=== PATIENT | female | born 1985 | race Caucasian/White ===

== ENCOUNTER 2022-07-22 00:58 | Day surgery (SDC) | payer OTHER, SELFPAY ==
[2022-07-20 11:24] VITALS: BMI 40.6
--- NOTE | 2022-07-20 11:35 | PC.NURSE ---
Report to the Outpatient Waiting Room, entrance under the green pavilion located off [facility], at time 1230 on date 07/22/22. OR Time: 1430. - You and your visitor will be asked to self-screen and do not enter if you have any COVID symptoms. - Only one visitor and NO children visitors are allowed at this time. - The patient visitor is requested to leave or wait in car when not with patient due to restrictions. - A mask is required within the hospital. Patients may have clear liquids (water, carbonated beverages, clear teas, apple juice) until 3 hours prior to surgery with a maximum of 20 ounces. - No food from midnight until time of surgery Take the following medications with a SIP of water the morning of surgery: N/A Medications to discontinue per physician: N/A Date to take last dose: N/A Please no make-up, nail english, hairspray, perfume, deodorant, or body powder the day of surgery. No jewelry (including any body piercings) or valuables the day of surgery, leave them at home. Please take a shower or bath the night before, or the morning of, surgery with an antibacterial soap. Wear comfortable, loose fitting clothing. - Jewelry must be removed prior to entering the operating room. Rings and piercings that are not removed may be cut off. - The hospital will not accept responsibility for valuables. - Please leave all valuables, including medications, at home the day of surgery. If you are going home after surgery, a licensed driver guide must drive you home. - NO public transportation without another adult. - We recommend that an adult stay with you for 24 hours following discharge. - We also recommend that you do not drive, make important decision, drink alcoholic beverages, or take any drugs that were not prescribed by your health care provider for at least 24 hours after your discharge time. Follow any additional instructions given to you from your surgeon. If you or anyone in your household have experienced Covid symptoms in the past week, please notify your surgeon or the nurse liaison at the phone number below for possible testing. Telephone instructions given to PT - SHADI LEVINE and asked if any additional questions and then verbalized understanding. Patient advised to call surgeon office or pre surgery nurse liaison [phone] if any additional questions.
[2022-07-22] VITALS (10 sets, daily range): BP systolic 109–142; BP diastolic 72–104; PULSE 56–94; RESP 15–21; TEMP 36.1–37.3; O2SAT 95–100
--- NOTE | 2022-07-22 13:15 | WPDANESEPPF ---
Anes - Initial Pre Proc Eval Procedure: Operation Date: 07/22/22 14:30 Proposed Procedures p Laparoscopic Left Ovarian Cystectomy, Bilateral Salpingectomy, Hysteroscopy with Removal of Intrauterine Device - Rk Oquendo MD Date/Time: 07/22/22 13:15 Surgeon: Rk Oquendo MD Pre Op Diagnosis: Lt Ovarian Cyst, Desires Sterilization Patient Data Age: 37 Gender: F Height: 1.55 m Weight: 97.52 kg Allergies Allergy/AdvReac Type Severity Reaction Status Date / Time No Known Allergies Allergy Verified 07/20/22 11:23 Home Medications Medication Instructions Recorded Confirmed Type No Home Medications 07/13/22 07/20/22 History Patient hx anesthesia problems: post op nausea/vomiting Family hx anesthesia problems: none Results Review: All pre-operative results and documents have been reviewed as part of the pre-operative evaluation. [facility] Past Medical History Medical History Abnormal mammogram 01/31/09 asymmetry - US F/U WNL Abnormal Pap smear of cervix 2006 - LGSIL ACL tear Acne BMI 38.0-38.9,adult Encounter for IUD insertion 02/08/19 Mirena insertion Other specified injuries of right lower leg, initial encounter Postoperative follow-up URI, acute Surgical History Surgical History (Updated 07/13/22 @ 14:07 by CHARLEEN Flynn) History of appendectomy (05/23/18) History of 08/17/12 primary--breech 11/04/14 rpt c/s History of colposcopy with cervical biopsy 03/22/17 LGSIL--benign 04/06/07--squamous atypia/HPV changes History of ovarian cystectomy (01/08/16) RA lt ovarian cystectomy History of plastic surgery chicken pox scar revision S/P arthroscopic surgery of right knee (~03/02/22) ACL repair Family History Family History Father No problems noted. Mother No problems noted. Sibling No problems noted. 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 Gender identity (if verbalized by the patient): Female Sexual Orientation (if Verbalized by the Patient): Straight or Heterosexual Spiritual care concerns: No Anes - Eval Final PreProcedure Day of Procedure 07/22/22 13:15 Patient weight: morbidly obese Heart: regular rate and rhythm Lungs: clear to auscultation Airway: Mallampati scale class II Neurological: alert and oriented Last oral intake: >/= 8 hours ASA classification: III Emergent: no Anesthetic plan: proceed Anesthesia type and monitoring: general ETT and standard monitoring Results Review: All pre-operative results and documents have been reviewed as part of the pre-operative evaluation. Informed Consent: The patient's anesthetic plan and its attendant risks and benefits were discussed with the patient/family/POA. Questions were solicited and answers provided to the satisfaction of the patient/family/POA.
--- NOTE | 2022-07-22 13:31 | PM.IMHP ---
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 She has had this pain for last 4-5 weeks increasing in severity. No other associated symptomatology. The ultrasound reveals 4-5 cm simple cyst of the left ovary. Also desires salpingectomy for control, we have discussed the permanence failure rate increased risk of ectopic and regret and she consents desires to proceed. Also has an IUD in place which will need to be removed. Chief Complaint: Pelvic pain Review of Systems Review of Systems: All systems reviewed & are unremarkable except as noted in HPI and below PMFSH Past Medical History Medical History Abnormal mammogram 01/31/09 asymmetry - US F/U WNL Abnormal Pap smear of cervix 2006 - LGSIL ACL tear Acne BMI 38.0-38.9,adult Encounter for IUD insertion 02/08/19 Mirena insertion Other specified injuries of right lower leg, initial encounter Postoperative follow-up URI, acute Surgical History Surgical History History of appendectomy (05/23/18) History of 08/17/12 primary--breech 11/04/14 rpt c/s History of colposcopy with cervical biopsy 03/22/17 LGSIL--benign 04/06/07--squamous atypia/HPV changes History of ovarian cystectomy (01/08/16) RA lt ovarian cystectomy History of plastic surgery chicken pox scar revision S/P arthroscopic surgery of right knee (~03/02/22) ACL repair Family History Family History Father No problems noted. Mother No problems noted. Sibling No problems noted. 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 Gender identity (if verbalized by the patient): Female Sexual Orientation (if Verbalized by the Patient): Straight or Heterosexual Spiritual care concerns: No Meds Home Medications and Allergies Home Medications Medication Instructions Recorded Confirmed Type No Home Medications 07/13/22 07/20/22 History Allergies Allergy/AdvReac Type Severity Reaction Status Date / Time No Known Allergies Allergy Verified 07/20/22 11:23 Exam Const: General: cooperative, healthy appearing and comfortable Resp: Effort & Inspection: normal respiratory effort Auscultation: clear to auscultation bilaterally Cardio: Rate: regular rate Rhythm: regular rhythm GI: Inspection: normal to inspection Auscultation: normal bowel sounds : External Female Exam: normal external appearance Speculum Exam - Vagina: normal appearance of the vagina Speculum Exam - Cervix: normal appearance of the cervix (Short IUD string noted) Bimanual exam- vagina & uterus: uterine size normal Bimanual Exam- Adnexa, other: other (Left adnexa enlarged and tender) Assessment and Plan Assessment and plan (1) Ovarian cyst: Code(s): N83.209 - Unspecified ovarian cyst, unspecified side Status: Acute Assessment and Plan: Proceed with laparoscopic ovarian cystectomy, possible oophorectomy the on likely that this will need to be performed. (2) Encounter for female sterilization procedure: Code(s): Z30.2 - Encounter for sterilization Status: Acute Assessment and P
--- NOTE | 2022-07-22 13:39 | WPDHPUPDATE1 ---
History and Physical Update Update Date/Time: 07/22/22 13:39 History and Physical has been reviewed, including an updated exam of the patient. There are NO changes in the patient's condition. Risks, benefits, and alternatives have been discussed and questions answered. Patient agrees to proceed with procedure.
[2022-07-22] MEDS: ACETAMINOPHEN 500 MG TABLET 1000 MG PO (13:42)
[2022-07-22] MEDS: KETOROLAC 15 MG/ML VIAL (*BKC) IV PUSH (13:43)
[2022-07-22] MEDS: SCOPOLAMINE 1.5 MG PATCH TRANSDERM (13:43)
[2022-07-22] MEDS: MIDAZOLAM HCL (*CRX) 2 MG/2 ML VIAL IV PUSH (14:08)
[2022-07-22] MEDS: LACTATED RINGERS 1,000 ML 30 ML IV CONT (14:15)
--- NOTE | 2022-07-22 15:47 | W.PM.PROC2 ---
Procedure Note - Detailed Date of Procedure 07/22/22 Pre-op Diagnosis Lt Ovarian Cyst, Desires Sterilization, retained IUD Post-op Diagnosis Same Procedure Performed 1. Laparoscopic bilateral salpingectomy 2. Laparoscopic left ovarian cystectomy 3. Removal of IUD (hysteroscope not require) Surgeon Rk Oquendo MD Anesthesia General Findings 1. Retained IUD 2. Left ovarian cyst Description of Procedure Patient prepped draped usual manner for this procedure. Cervical instruments were placed for uterine mobility and the IUD was readily removed at this point in time during the case. Midline and lateral trocars were placed under direct visualization and insufflation was undertaken without difficulty. Using Harmonic scalpel the mesial salpinx was cauterized and cut bilateral to remove both fallopian tubes. The ovarian cyst was located the ovary was incised over the cyst and the cyst wall was removed without difficulty. Chantel was empirically placed in the ovarian biopsy site but there was no significant bleeding. Gas was allowed to escape incisions approximated using 4-0 Monocryl the patient's recovery room in stable condition. Estimated Blood Loss 20 Drains No Packing No Pathology Yes Complications No immediate complications Condition Stable Disposition PACU [facility] Billing Surgery - Charge Forward: Surgery Billing
[2022-07-22] MEDS: ONDANSETRON INJ 4 MG/2 ML VIAL IV PUSH (16:10)
[2022-07-22] MEDS: diphenhydrAMINE HCl INJ 50 MG/ML VIAL 25 MG IV PUSH (16:17)
[2022-07-22] MEDS: MEPERIDINE HCL INJ (*CRX) 50 MG/ML AMPUL 25 MG IV PUSH (16:28)
[2022-07-22] MEDS: oxyCODONE HCL (*CRX) 5 MG TAB IR PO (17:47)
== END 2022-07-22 18:09 | disposition home or self-care (01) ==
PROVIDERS: Visit Provider Obstetrics & Gynecology
PROC: 0UDB8ZZ Extraction of Endometrium, Via Natural or Artificial Opening Endoscopic (ICD-10-PCS; CPT 58558; principal; 2022-07-22 14:30)
DX: Z30.2 Encounter for sterilization (principal); Z30.432 Encounter for removal of intrauterine contraceptive device; Z87.891 Personal history of nicotine dependence; E66.9 Obesity, unspecified; Z68.39 Body mass index [BMI] 39.0-39.9, adult; N83.292 Other ovarian cyst, left side
CPT/HCPCS: 58661; 58301; 58662; 88302; 88305; A9270; J1100; J1200; J1885; J2175; J2250; J2405; J2704; J2710; J3010; J7030; J7120

== ENCOUNTER → 2022-07-28 10:13 | Outpatient (CLI) | payer OTHER, SELFPAY ==
--- NOTE | ~2022-07-28 | US_ITS ---
EXAMINATION: US soft tissue LE LT DATE: 07/28/2022 10:32 INDICATION: Bulging left leg mass [id number] TECHNIQUE: Multiple grayscale and Doppler ultrasound images of the region of concern at the posterior left upper calf were obtained. COMPARISON: None FINDINGS: The appearance to the subcutaneous tissues and underlying musculature at the region of concern. No li ba, 's cyst or other abnormal masses or fluid collections identified. IMPRESSION: 1. Normal study. No abnormal masses or fluid collections identified at the region of concern. Reviewed, dictated and finalized at location A. IMPRESSION: 1. Normal study. No abnormal masses or fluid collections identified at the brandon on of concern.
== END ==
PROVIDERS: PCP Family Medicine
DX: M79.89 Other specified soft tissue disorders (principal)
CPT/HCPCS: 76882

== ENCOUNTER 2022-07-28 10:37 | Outpatient (CLI) | payer OTHER, SELFPAY ==
[2022-07-28 18:47] LABS: Basophils Absolute Auto 0.1 K/mm3 (0.0-0.1); Basophils Percent Auto 0.5 % (0.2-1.2); Eosinophils Absolute Auto 0.1 K/mm3 (0-0.3); Eosinophils Percent Auto 0.8 % (0-4.4); Hematocrit 43.8 % (37.0-47.0); Hemoglobin 14.8 g/dL (12.0-15.0); Immature Granulocyte Absolute 0.02 K/mm3 (0.00-0.031); Immature Granulocyte Percent A 0.2 % (0-0.5); Lymphocytes Absolute Auto 2.78 K/mm3 (0.9-3.2); Lymphocytes Percent Auto 26.8 % (18.3-44.2); Mean Corpuscular HGB Conc 33.8 g/dl (32-36); Mean Corpuscular Hemoglobin 30.3 pg (26-34); Mean Corpuscular Volume 89.6 fl (80-100); Mean Platelet Volume 11.4 fl (7.4-10.4); Monocytes Absolute Auto 0.7 K/mm3 (0.1-0.6); Monocytes Percent Auto 6.3 % (2.6-8.5); Neutrophils Absolute Auto 6.8 K/mm3 (1.3-6.7); Neutrophils Percent Auto 65.4 % (45.5-73.1); Platelet Count Result 351 k/mm3 (150-375); Red Blood Count 4.89 M/mm3 (4.2-5.4); Red Cell Distribution Width 12.5 % (11.5-14.5); White Blood Count 10.4 K/mm3 (4.5-10.0)
[2022-07-28 18:57] LABS: Alanine Aminotransferase 21 U/L (6-35); Albumin Level 4.7 g/dL (3.5-5.1); Alkaline Phosphatase 93 U/L (38-126); Anion Gap 17 mmol/L (8-16); Aspartate Amino Transferase 47 U/L (14-36); Bilirubin,Total 0.2 mg/dL (0.2-1.3); Blood Urea Nitrogen 9 mg/dL (7-17); Calcium 9.6 mg/dL (8.4-10.2); Carbon Dioxide 26 mmol/L (22-30); Chloride 97 mmol/L (98-107); Estimated Glomerular Filt Rate > 60; Glucose 84 mg/dL (65-110); Potassium 4.4 mmol/L (3.4-5.0); Sodium 140 mmol/L (137-145)
== END 2022-07-28 10:38 | disposition home or self-care (01) ==
LOC: ANHGOSHLAB 10:38
PROVIDERS: PCP Family Medicine; Visit Provider Nurse Practitioner Family
DX: R42 Dizziness and giddiness (principal); G89.18 Other acute postprocedural pain; R11.0 Nausea
CPT/HCPCS: 36415; 76882; 80053; 85025

== ENCOUNTER 2025-02-15 15:08 | Outpatient (CLI) | payer OTHER, SELFPAY ==
--- NOTE | ~2025-02-15 | MM_ITS ---
EXAMINATION: MM screening balbir BI w ernestina HISTORY: Baseline screening TECHNIQUE: Craniocaudal and mediolateral oblique 3-D tomosynthesis images were obtained and synthetic 2-D images were generated. CAD analysis was submitted and interpreted. COMPARISON: No prior mammogram BREAST PARENCHYMAL COMPOSITION: The breasts are heterogeneously dense, which may obscure small masses . FINDINGS: Well-circumscribed asymmetry within the slightly lower inner right breast for which spot co mpression views followed by ultrasound is recommended. Otherwise unremarkable parenchymal pattern without suspicious microcalcifications or architectural di stortion. IMPRESSION: Well-circumscribed asymmetry within the slightly lower inner right breast for which spot compression views followed by ultrasound is recommended. BI-RADS Category 0: Incomplete: Needs additional imaging evaluation. Reviewed, dictated and finalized at location A. IMPRESSION: Well-circumscribed asymmetry within the slightly lower inner right breast for w hich spot compression views followed by ultrasound is recommended. BI-RADS Category 0: Incomplete: Needs additional imaging evaluation.
== END 2025-02-15 15:09 | disposition home or self-care (01) ==
LOC: MICIMG 15:09
PROVIDERS: PCP Family Medicine; Visit Provider Obstetrics & Gynecology
DX: Z12.31 Encounter for screening mammogram for malignant neoplasm of breast (principal); N64.89 Other specified disorders of breast
CPT/HCPCS: 77063; 77067

== ENCOUNTER 2025-02-23 13:06 | Outpatient (CLI) | payer OTHER, SELFPAY ==
--- NOTE | ~2025-02-23 | MMUS_ITS ---
EXAMINATION: US breast RT limited, MM diagnostic balbir RT w ernestina HISTORY: Follow-up right breast mass TECHNIQUE: Additional 3-D tomosynthesis images of the right breast were performed and synthetic 2-D i mages were generated. CAD analysis was submitted and interpreted. High resolution Limited right breas t ultrasound was performed. COMPARISON: 02/16/2020 BREAST PARENCHYMAL COMPOSITION: Dense: The breasts are heterogeneously dense, which may obscure small masses FINDINGS: MAMMOGRAPHIC FINDINGS: There is a persistent low-density mass in the lower inner quadrant of the right breast. There are no suspicious calcifications or architectural distortion. ULTRASOUND: Limited right breast ultrasound: There are multiple cysts of the right breast including a septated cy st at 6:00. At 12:00, 4 cm from the nipple there is a 5 mm cyst. At 1:00, 1 cm from the nipple there is a 3 mm cyst. At 2:00, 3 cm from the nipple there is a 4 mm cyst. No suspicious masses to suggest m alignancy. IMPRESSION: 1. No evidence for malignancy in the right breast. Benign findings. 2. Routine yearly screening mammogram and regular clinical breast examination are recommended. BI-RADS Category 2: Benign finding(s). Reviewed, dictated and finalized at location A. IMPRESSION: 1. No evidence for malignancy in the right breast. Benign findings. 2. Routine yearly screening mammogram and regular clinical breast examination a re recommended. BI-RADS Category 2: Benign finding(s).
--- OUTSIDE RECORDS SUMMARY | 2025-02-23 13:12 | XMS_ITS | Referral Summary ---
Author Organization [facility] Address [address] [place] [id number] Care Team Providers Care Solar Sales Specialist Name Role Phone Fabiano Dean MD Primary Care Provider Encounters Date Type Department Care Team Description 02/05/2025 Results Follow-Up [facility] Emergency Department [address] [place] [address] Celestino Crane RN 02/04/2025 11:58 AM CDT - 02/04/2025 3:32 PM CDT Emergency [facility] Emergency Department [address] [place] [address] Satya Arteaga MD Lacy, Aaron John, MD Fall, initial encounter (Primary Dx); Nausea and vomiting, unspecified vomiting type; Acute alcoholic gastritis, presence of bleeding unspecified Discharge Disposition: Discharge to home or self care from Last 3 Months Allergies No known active allergies Medications levonorgestreL (Mirena) IUDIndications:Pr egnancy Contraception by intrauterine route once Active ondansetron (ZOFRAN) 4 mg tablet Take 1 tablet (4 mg total) by mouth every 6 (six) hours 12 tablet 02/05/20 25 Active Active Problems Problem Noted Date Diagnosed Date Rupture of anterior cruciate ligament of right k nee 02/20/2022 Overview (02/20/2022): Added automatically from request for surgery [id number] Breakthrough bleeding 02/05/2022 Cough 02/05/2022 Female genital symptoms 02/05/2022 Loss of hair 02/05/2022 Posterior rhinorrhea 02/05/2022 Upper respiratory infection 02/05/2022 Urinary incontinence 02/05/2022 Vaginal bleeding between periods 02/05/2022 Acute appendicitis with generalized peritonitis 05/15/2018 Assessment & Plan (05/16/2018 12:20 PM CDT): Doing well. Tolerating regular diet. Discharge home Social History Tobacco Use Types Packs/Day Years Used Date Smoking Tobacco: Some Days Cigarettes 0.1 1 Smokeless Tobacco: Never Tobacco Cessation:Counseling Given: No Comments:1 pack /month Alcohol Use Standard Drinks/Week Comments Yes 2 (1 standard drink = 0.6 oz pur e alcohol) AUDIT-C Answer Date Recorded Q1: How often do you have a drink containing alc ohol? 2-3 times a week 02/20/2022 Q2: How many drinks containi ng alcohol do you have on a typical day when you are drinking? 1 or 2 02/20/2022 Q3: How often do you have si x or more drinks on one occasion? Never 02/20/2022 Personal Safety Answer Date Recorded Have you ever been in or are you currently in a harmful physical or emotional relationship or is someone making you feel afraid or unsafe? 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 Sexual Orientation Straight 01/30/2022 11 :37 PM [employer] FACULTY MEMBER Last Filed Vital Signs Vital Sign Reading Time Taken Comments Blood Pressure 120/78 02/04/2025 1:40 PM CDT Pulse 95 02/04/2025 1:40 PM CDT Temperature 36.8 C (98.2 F) 02/04/2025 1:40 PM CDT Respiratory Rate 15 02/04/2025 1:40 PM CDT Oxygen Saturation 99% 02/04/2025 1:40 PM CDT Inhaled Oxygen Concentration - - Weight 70.3 kg (155 lb) 02/04/2025 12:04 PM CDT Height 152.4 cm (5') 02/04/2025 12:04 PM CDT Body Mass Index 30.27 02/04/2025 12:04 PM CDT Plan of Treatment Not on file Medical Devices Implanted Type Area Laser Technician Device Identifier Shelf Expiration Date Model / Serial / Lot [employer] Ar-1588-Rtt Device Fxatn Tightrope Fibertag Acl Right Disp - [id number] Implanted:Qty: 1 on 02/27/2022 by Darrick Kerns MD at [facility] [place] Right: Knee [employer] 11/21/2026 AR-1588-RTT / / [id number] [employer] Ar-4030c-10 Fastthread 10mm 30mm Knee Screw Interference Biocomposite - [id number] Implanted:Qty: 1 on 02/27/2022 by Darrick Kerns MD at [facility] Right: Knee [employer] 08/21/2025 AR-4030C-10 / / [id number] [employer] Swivelock C 4.75mm 19.1mm Closed Eyelet Vent [place] Suture Ar-2324bcc - [id number] Implanted:Qty: 1 on 02/27/2022 by Darrick Kerns MD at [facility] Right: Knee [employer] 11/21/2025 AR-[id number] / / [id number] Procedures Procedure Name Priority Date/Time Associated Diagnosis Comments HEMOGLOBIN A1C STAT 02/04/2025 2:17 PM CDT BLOOD GAS, VENOUS STAT 02/04/2025 2:1 7 PM CDT TROPONIN I HIGH-SENSITIVITY 2-HOUR Timed 02/04/2025 2:17 PM CDT TROPONIN I HIGH-SENSITIVITY SERIES (BASELINE, 2HR, 4HR, 6HR) STAT 02/04/2025 12:47 PM CDT ECG 12-LEAD Routine 02/04/2025 12:[address] HEAD FACIAL BONES WO CONTRAST ED 02/04/2025 12:45 PM CDT EGFR STAT 02/04/2025 12:30 PM CDT DIFFERENTIAL AUTO STAT 02/04/2025 12: 30 PM CDT COMPREHENSIVE METABOLIC PANEL STAT 02/04/2025 12:30 PM CDT CBC WITH AUTO DIFFERENTIAL STAT 02/04/2025 12:30 PM CDT POCT GLUCOSE DEVICE Routine 02/04/2025 1 2:09 PM CDT from Last 3 Months Results * Troponin I high-sensitivity 2-hour (02/04/2025 2:17 PM CDT) Trop I hs <4 <=17 ng/L Comment: Interpretive Data For further hscTnI resources including the diagnostic algorithm and an aid in interpretation, copy and paste this link: https://bjhlab.testcatalog.org/show/hsTrop-1 Current Interpretive Data last revised 2020. Trop I hs delta See Comment ng/L [facility] ALLISON Comment:Inappropriate collec tion time to report a delta. Trop I hs pct delta See Comment % SHEEBA ALLISON Comment:Inappropriate collec tion time to report a delta. Trop I hs interp See Comment SHEEBA ALLISON Comment:Inappropriate collec tion time to report a delta. Blood 02/04/2025 2:17 PM CDT 02/04/2025 2:31 PM CDT us Satya Arteaga MD LAB BLOOD ORDERABLES Final Re sult SHEEBA ALLISON [facility] Department [place] [address] * Hemoglobin A1c (02/04/2025 2:17 PM CDT) Hgb A1C 5.1 4.0 - 5.6 % Estimated Average Glucose 100 mg/dL [facility] KEITH Comment: The ADA recommends reporting an estimated Average Glucose (eAG) with all Hemoglobin A1c results using the equation derived from a study of 507 normal and diabetic adults. Minority populations were underrepresented and children were not included. (Diabetes Care 2020; 43(S1): S66-S76). The eAG is not equivalent to a fasting glucose. Blood 02/04/2025 2:17 PM CDT 02/04/2025 2:31 PM CDT Satya Arteaga MD LAB BLOOD ORDERABLES Final Re sult Performing Organization Address [facility] de Phone Number [facility] Department [place] [address] * (ABNORMAL) Blood gas, venous (02/04/2025 2:17 PM CDT) pH, Venous 7.33 7.32 - 7.43 PCO2, Venous 37(L) 40 - 50 mmHg [facility] PO2, Venous 109 mmHg [facility] Comment: Interpretive Data No Reference Range Established Current Interpretive Data was last revised on 2018. HCO3 Venous, Calculated 20 20 - 30 mmol/L [facility] BE, venous -6 mmol/L [facility] Comment: Interpretive Data No Reference Range Established Current Interpretive Data was last revised on 2018. Blood 02/04/2025 2:17 PM CDT 02/04/2025 2:22 PM CDT Satya Arteaga MD LAB BLOOD ORDERABLES Final Re sult Performing Organization Address [facility] Co de Phone Number [facility] Department [place] [address] * Troponin I high-sensitivity series (baseline, 2hr, 4hr, 6hr) (02/04/2025 12:47 PM CDT) Trop I hs <4 <=17 ng/L Comment: Interpretive Data For further [facility] resources including the diagnostic algorithm and an aid in interpretation, copy and paste this link: https://bjhlab.testcatalog.org/show/hsTrop-1 Current Interpretive Data last revised 2020. Blood 02/04/2025 12:4 7 PM CDT 02/04/2025 12:50 PM CDT Satya Arteaga MD LAB BLOOD ORDERABLES Final Re sult Performing Organization Address City/[facility]/ZIP Co de Phone Number [facility] Department [place] [address] * ECG 12-LEAD (02/04/2025 12:46 PM CDT) Narrative [facility] - 02/04/2025 12:46 PM CDT Satya Arteaga MD 02/04/2025 12:47 PM ECG 12 lead Date/Time: 02/04/2025 12:46 PM Performed by: Satya Arteaga MD Authorized by: Satya Arteaga MD Rate: ECG rate assessment comment: 117, sinus tachycardia, st depressio shawn II nsstc, normal axis, normal intervals Satya Arteaga MD ECG ORDERABLES Final Result Performing Organization Address [facility] Co de Phone Number [facility] * CT Head Facial Bones WO Contrast (02/04/2025 12:45 PM CDT) Anatomical Region Laterality Modality Head and Neck N/A Computed Tomogra phy 02/04/2025 1:09 PM CDT Impressions 02/04/2025 1:12 PM CDT 1. No acute intracranial process. 2. Small hematoma superficial to the left midline mandible and chin, without underlying fracture. Dictated by: Ghassan Dumont MD, Ph.D The radiology attending physician has personally reviewed this study, and had reviewed and/or edited this written report and agrees with it. Electronically signed by: Gem Richard MD Narrative 02/04/2025 1:12 PM CDT EXAMINATION: 1. CT head without contrast 2. CT of the maxillofacial bones, orbits, and paranasal sinuses without contrast HISTORY: Hit head on nightstand in the middle the night. Vomiting subsequently. TECHNIQUE: CT of the head was performed with images acquired from skull base to vertex without intravenous contrast. Computed tomography of the maxillofacial bones, orbits, and paranasal sinuses was performed without intravenous contrast according to the standard protocol. COMPARISON: None FINDINGS: HEAD: There is no acute intracranial hemorrhage. Ventricles are of normal size and morphology. No mass effect or midline shift is present. The mead-white matter differentiation is normal. Small right mucous retention cyst in the maxillary sinus. No fractures are identified. FACE: Small hematoma superficial to the left midline mandible, with associated stranding of the chin on the left side. No underlying acute fracture. The orbits are normal. The frontal, ethmoid, and sphenoid sinuses are normal. The mandible is normal. No areas of bony erosion are identified. The remaining maxillofacial bones are unremarkable. The mastoid air cells are normal. There is no acute fracture. Procedure Note Gem Richard MD PhD - 02/04/2025 EXAMINATION: 1. CT head without contrast 2. CT of the maxillofacial bones, orbits, and paranasal sinuses without contrast HISTORY: Hit head on nightstand in the middle the night. Vomiting subsequently. TECHNIQUE: CT of the head was performed with images acquired from skull base to vertex without intravenous contrast. Computed tomography of the maxillofacial bones, orbits, and paranasal sinuses was performed without intravenous contrast according to the standard protocol. COMPARISON: None FINDINGS: HEAD: There is no acute intracranial hemorrhage. Ventricles are of normal size and morphology. No mass effect or midline shift is present. The mead-white matter differentiation is normal. Small right mucous retention cyst in the maxillary sinus. No fractures are identified. FACE: Small hematoma superficial to the left midline mandible, with associated stranding of the chin on the left side. No underlying acute fracture. The orbits are normal. The frontal, ethmoid, and sphenoid sinuses are normal. The mandible is normal. No areas of bony erosion are identified. The remaining maxillofacial bones are unremarkable. The mastoid air cells are normal. There is no acute fracture. IMPRESSION: 1. No acute intracranial process. 2. Small hematoma superficial to the left midline mandible and chin, without underlying fracture. Dictated by: Ghassan Dumont MD, Ph.D The radiology attending physician has personally reviewed this study, and had reviewed and/or edited this written report and agrees with it. Electronically signed by: Gem Richard MD Satya Arteaga MD IMG CT PROCEDURES Final Resul t * eGFR (02/04/2025 12:30 PM CDT) eGFR >90 >=60 mL/min/1. 73 m2 Comment: Interpretive Data Reference Interval Normal >/= 90 mL/min/1.73m2 Mildly decreased* 60 - 89 mL/min/1.73m2 Mildly to moderately decreased 45 - 59 mL/min/1.73m2 Moderately to severely decreased 30 - 44 mL/min/1.73m2 Severely decreased 15 - 29 mL/min/1.73m2 Kidney Failure < 15 mL/min/1.73m2 *Relative to young adult level Estimated glomerular filtration rate is determined by the 2020 CKD-EPI equation recommended by the National Kidney Foundation (A Unifying Approach to GFR Estimation: Recommendations of the NKF-ASK Task Force on Reassessing the Inclusion of Race in Diagnosing Kidney Disease, JASN 2020). The CKD-EPI equation should not be used for patients with unstable renal function and has not been validated in children and those over 70. Current interpretive data was last reviewed 2021. Blood 02/04/2025 12:3 0 PM CDT 02/04/2025 12:46 PM CDT Satya Arteaga MD LAB BLOOD ORDERABLES Final Re sult [facility] Department [place] [address] * (ABNORMAL) Differential, auto (02/04/2025 12:30 PM CDT) Neutrophil abs 17.6(H) 1.5 - 6.5 K/cumm Imm gran abs 0.1 0.0 - 0.1 K/cumm [facility] Lymphocyte abs 0.8 0.8 - 3.3 K/cumm [facility] Monocyte abs 0.4 0.2 - 0.8 K/cumm [facility] Eosinophil abs 0.0 0.0 - 0.5 K/cumm [facility] Basophil abs 0.1 0.0 - 0.1 K/cumm [facility] Neutrophil pct 92.9 % [facility] Comment: Interpretive Data Percent cell count reference ranges are not reported, since discordance with absolute values may lead to misinterpretation of CBC data. Current Interpretive Data was last revised on 2018. Imm gran pct 0.5 % [facility] Comment: Interpretive Data Percent cell count reference ranges are not reported, since discordance with absolute values may lead to misinterpretation of CBC data. Current Interpretive Data was last revised on 2018. Lymphocyte pct 4.1 % [facility] Comment: Interpretive Data Percent cell count reference ranges are not reported, since discordance with absolute values may lead to misinterpretation of CBC data. Current Interpretive Data was last revised on 2018. Monocyte pct 2.2 % [facility] Comment: Interpretive Data Percent cell count reference ranges are not reported, since discordance with absolute values may lead to misinterpretation of CBC data. Current Interpretive Data was last revised on 2018. Eosinophil pct 0.0 % [facility] Comment: Interpretive Data Percent cell count reference ranges are not reported, since discordance with absolute values may lead to misinterpretation of CBC data. Current Interpretive Data was last revised on 2018. Basophil pct 0.3 % [facility] Comment: Interpretive Data Percent cell count reference ranges are not reported, since discordance with absolute values may lead to misinterpretation of CBC data. Current Interpretive Data was last revised on 2018. Blood 02/04/2025 12:3 0 PM CDT 02/04/2025 12:47 PM CDT us Satya Arteaga MD LAB BLOOD ORDERABLES Final Re sult [facility] ALLISON [facility] [place] [address] * (ABNORMAL) CBC with auto differential (02/04/2025 12:30 PM CDT) WBC 18.9(H) 3.8 - 9.9 K/cumm Hgb 13.9 11.9 - 15.5 g/dL [facility] Hct 40.7 35.6 - 45.5 % [facility] Plt 380 150 - 400 K/cumm [facility] MPV 10.5 9.1 - 12.3 fL [facility] RBC 4.58 3.90 - 5.20 M/cumm [facility] MCV 88.9 81.3 - 96.4 fL [facility] MCH 30.3 27.1 - 33.3 pg [facility] MCHC 34.2 32.3 - 35.7 g/dL [facility] RDW CV 12.8 11.1 - 14.9 % [facility] RDW SD 41.6 35.7 - 48.1 fL [facility] NRBC abs 0.00 0.00 - 0.01 K/cumm [facility] Blood Venous blood specimen / Unknown 02/04/2025 12:30 PM CDT 02/04/2025 12:47 PM CDT us Satya Arteaga MD LAB BLOOD ORDERABLES Final Re sult [facility] Department [place] [address] * (ABNORMAL) Comprehensive metabolic panel (02/04/2025 12:30 PM CDT) [facility] Sodium 138 135 - 145 mmol/L Potassium, pl 4.0 3.3 - 4.9 mmol/L [facility] Chloride 103 97 - 110 mmol/L [facility] CO2 18(L) 22 - 32 mmol/L [facility] Anion gap 17(H) 2 - 15 mmol/L [facility] BUN 13 6 - 25 mg/dL [facility] Creatinine 0.78 0.60 - 1.10 mg/dL [facility] Glucose 213(H) 70 - 199 mg/dL [facility] Comment: Interpretive Data Fasting glucose >/= 126 mg/dl is diagnostic for diabetes. Fasting is defined as no caloric intake for at least 8 hours. Fasting glucose between 100 mg/dl to 125 mg/dl is diagnostic of prediabetes. In a patient with classic symptoms of hyperglycemia or hyperglycemic crisis, a random glucose >/= 200 mg/dl is diagnostic for diabetes. In the absence of unequivocal hyperglycemia, results should be confirmed by repeat testing. The classification and Diagnosis of Diabetes Diabetes Care 2021; 46: S19-S40. Current interpretive data was last revised 2022. Calcium 9.2 8.5 - 10.3 mg/dL [facility] Bilirubin, total 0.3 0.1 - 1.2 mg/dL [facility] Protein, pl 7.8 6.5 - 8.5 g/dL [facility] Albumin 4.8 3.5 - 5.0 g/dL [facility] Alk phos 75 40 - 130 Units/L [facility] ALT 25 7 - 45 Units/L [facility] AST 30 10 - 45 Units/L [facility] Blood Venous blood specimen / Unknown 02/04/2025 12:30 PM CDT 02/04/2025 12:46 PM CDT Satya Arteaga MD LAB BLOOD ORDERABLES Final Re sult [facility] Department [place] [address] * POCT glucose (02/04/2025 12:09 PM CDT) [facility] Signature Glucose, POC 188 70 - 199 mg/dL Blood 02/04/2025 12:0 9 PM CDT 02/04/2025 12:09 PM CDT Satya Arteaga MD LAB POCT ORDERABLES - DEVICE Final Result [facility] Department [place] [address] from Last 3 Months Insurance [employer] OPEN ACCESS [employer] HMO Member Subscriber Plan / Payer (Ef fective 2013-Present) Name:Shadi Levine Relation to Subscriber:Self Name:SHADI LEVINE Payer ID:[id number] Group ID:[id number] Type:[employer] HMO/PPO Address: [address] EMPLOYEES [employer] EM[employer]ES [employer] Advance Directives For more information, please contact: [phone] * Full Code (Latest Code Status on File) Date Activated Date Inactivated Comments 05/15/2018 12:50 AM 05/16/2018 4:26 PM * Full Code Date Activated Date Inactivated Comments 05/14/2018 8:26 PM 05/15/2018 12:50 AM Care Teams Solar Sales Specialist Relationship Specialty Start Date End Date Fabiano Dean MD PCP - General Family Medicine 01/27/22
--- OUTSIDE RECORDS SUMMARY | 2025-02-23 13:12 | XMS_ITS | Clinical Summary ---
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 Name Role Phone Fabiano Dean MD Primary Care Provider Allergies No known active allergies Medications levonorgestreL (Mirena) IUDIndications:Pr egnancy Contraception by intrauterine route once Active ondansetron (ZOFRAN) 4 mg tablet Take 1 tablet (4 mg total) by mouth every 6 (six) hours 12 tablet 02/05/20 25 Active Active Problems Problem Noted Date Diagnosed Date Rupture of anterior cruciate ligament of right k nee 02/20/2022 Overview (02/20/2022): Added automatically from request for surgery [id number] Breakthrough bleeding 02/05/2022 Cough 02/05/2022 Female genital symptoms 02/05/2022 Loss of hair 02/05/2022 Posterior rhinorrhea 02/05/2022 Upper respiratory infection 02/05/2022 Urinary incontinence 02/05/2022 Vaginal bleeding between periods 02/05/2022 Acute appendicitis with generalized peritonitis 05/15/2018 Assessment & Plan (05/16/2018 12:20 PM CDT): Doing well. Tolerating regular diet. Discharge home Encounters Date Type Department Care Team Description 02/05/2025 Results Follow-Up [facility] Emergency Department [address] [place] [address] Celestino Crane RN 02/04/2025 11:58 AM CDT - 02/04/2025 3:32 PM CDT Emergency [facility] Emergency Department [address] [place] [address] Satya Arteaga MD Lacy, Aaron John, MD Fall, initial encounter (Primary Dx); Nausea and vomiting, unspecified vomiting type; Acute alcoholic gastritis, presence of bleeding unspecified Discharge Disposition: Discharge to home or self care from Last 3 Months Surgical History Surgery Date Site/Laterality Comments SECTION 2013 and 2011 APPENDECTOMY 11/22/2018 - 11/21/2019 OVARIAN CYST REMOVAL 11/22/2014 - 11/21/2015 Medical History Medical History Date Comments Motion sickness Hx of N/V postop eratively PONV (postoperative nausea and vomiting) Family History Medical History Relation Name Comments Anesthesia problems Neg Hx Relation Name Status Comments Brother Alive x2 Daughter Alive Father Alive Mother Alive Son Alive Social History Tobacco Use Types Packs/Day Years [...] CDT Gender Identity Female 01/30/2022 11:37 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 Sexual Orientation Straight 01/30/2022 11 :37 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 Obstetrics History Last Filed Vital Signs Vital Sign Reading [...] 02/04/2025 12:04 PM CDT Plan of Treatment Health Maintenance Due Date Last Done Comments Breast Cancer Screening-Mammogram 1985 Cervical Cancer Screening 1985 Depression Screening 1985 Hepatitis C Screening 1985 DTaP/Tdap/Td Vaccine (1 - Tdap) 02/09/1996 Varicella Vaccines (1 of 2 - 13+ 2-dose series) 1998 Hepatitis B Screening 2003 Regular Well Visit/Exam 18-64 2003 Pneumococcal vaccine <65 (1 of 2 - PCV) 02/09/2004 Covid-19 Vaccine (4 - 2023-2 5 season) 2024 11/20/2021, 01/08/2021, 12/18/2020 Influenza Vaccine (Season Ended) 2025 09/04/2021, 09/17/2020 HPV Vaccines Aged Out No longer eligi ble based on patient's age to complete this topic Medical Devices Implanted Type Area Director Process Improvement Device Identifier Shelf Expiration Date Model / Serial / Lot [employer] Ar-1588-Rtt Device Fxatn Tightrope Fibertag Acl Right Disp - [id number] Implanted:Qty: 1 on 02/27/2022 by Darrick Kerns MD at [facility] [place] Right: Knee [employer] 11/21/2026 AR-1588-RTT / / [id number] [employer] Ar-4030c-10 Fastthread 10mm 30mm Knee Screw Interference Biocomposite - [id number] Implanted:Qty: 1 on 02/27/2022 by Darrick Kerns MD at [facility] Right: Knee [employer] 08/21/2025 AR-4030C-10 / / [id number] [employer] Swivelock C 4.75mm 19.1mm Closed Eyelet Vent [place] Suture Ar-2324bcc - [id number] Implanted:Qty: 1 on 02/27/2022 by Darrick Kerns MD at [facility] Right: Knee [employer] 11/21/2025 [id number] / / [id number] Procedures Procedure Name Priority Date/Time Associated Diagnosis [...] I hs delta See Comment ng/L [facility] Comment:Inappropriate collec tion time to report a delta. Trop I hs pct delta See Comment % SHEEBA [facility] Comment:Inappropriate collec tion time to report a delta. Trop I hs interp See Comment [facility] Comment:Inappropriate collec tion time to report a delta. Blood 02/04/2025 2:17 PM CDT 02/04/2025 2:31 PM CDT Satya Arteaga MD LAB BLOOD ORDERABLES Final Re sult Performing Organization Address [facility] de Phone Number [facility] [place] [address] * Hemoglobin A1c (02/04/2025 2:17 PM CDT) [facility] Hgb A1C 5.1 4.0 - 5.6 % Estimated Average Glucose 100 mg/dL [facility] Comment: The ADA recommends reporting an estimated [...] ORDERABLES Final Re sult Performing Organization Address [facility] Co de Phone Number [facility] [place] [address] * (ABNORMAL) Blood gas, venous (02/04/2025 2:17 PM CDT) pH, Venous 7.33 7.32 - 7.43 PCO2, Venous 37(L) 40 - 50 mmHg [facility] PO2, Venous 109 mmHg [facility] Comment: Interpretive Data No Reference Range Established Current Interpretive Data was last revised on 2018. HCO3 Venous, Calculated 20 20 - 30 mmol/L [facility] BE, venous -6 mmol/L [facility] Comment: Interpretive Data No Reference Range Established Current Interpretive Data was last revised on 2018. Blood 02/04/2025 2:17 PM CDT 02/04/2025 2:22 PM CDT Satya Arteaga MD LAB BLOOD ORDERABLES Final Re sult Performing Organization Address [facility] Co de Phone Number [facility] [place] [address] * Troponin I high-sensitivity series (baseline, 2hr, 4hr, 6hr) (02/04/2025 12:47 PM CDT) [facility] Trop I hs <4 <=17 ng/L Comment: Interpretive Data For further hscTnI resources including the diagnostic algorithm and an aid in interpretation, copy and paste this link: [email or web address] Current Interpretive Data last revised 2020. Blood 02/04/2025 12:4 7 PM CDT 02/04/2025 12:50 PM CDT us Satya Arteaga MD LAB BLOOD ORDERABLES Final Re sult [facility] [place] [address] * ECG 12-LEAD (02/04/2025 12:46 PM CDT) Narrative [facility] - 02/04/2025 12:46 PM CDT Satya Arteaga MD 02/04/2025 12:47 PM ECG 12 lead Date/Time: 02/04/2025 12:46 PM Performed by: Satya Arteaga MD Authorized by: Satya Arteaga MD Rate: ECG rate assessment comment: 117, sinus tachycardia, st depressio shawn II nsstc, normal axis, normal intervals us Satya Arteaga MD ECG ORDERABLES Final Result [facility] * CT Head Facial Bones WO Contrast [...] of Race in Diagnosing Kidney Disease, JASN 202). The CKD-EPI equation should not be used for patients with unstable renal function and has not been validated in children and those over 70. Current interpretive data was last reviewed 2021. Blood 02/04/2025 12:3 0 PM CDT 02/04/2025 12:46 PM CDT us Satya Arteaga MD LAB BLOOD ORDERABLES Final Re sult [facility] [place] [address] * (ABNORMAL) Differential, auto (02/04/2025 12:30 PM CDT) Neutrophil abs 17.6(H) 1.5 - 6.5 K/cumm Imm gran abs 0.1 0.0 - 0.1 K/cumm [facility] Lymphocyte abs 0.8 0.8 - 3.3 K/cumm [facility] Monocyte abs 0.4 0.2 - 0.8 K/cumm [facility] Eosinophil abs 0.0 0.0 - 0.5 K/cumm [facility] Basophil abs 0.1 0.0 - 0.1 K/cumm [facility] Neutrophil pct 92.9 % [facility] Comment: Interpretive Data Percent cell count reference ranges are not reported, since discordance with absolute values may lead to misinterpretation of CBC data. Current Interpretive Data was last revised on 2018. Imm gran pct 0.5 % [facility] Comment: Interpretive Data Percent cell count reference ranges are not reported, since discordance with absolute values may lead to misinterpretation of CBC data. Current Interpretive Data was last revised on 2018. Lymphocyte pct 4.1 % [facility] Comment: Interpretive Data Percent cell count reference ranges are not reported, since discordance with absolute values may lead to misinterpretation of CBC data. Current Interpretive Data was last revised on 2018. Monocyte pct 2.2 % [facility] Comment: Interpretive Data Percent cell count reference ranges are not reported, since discordance with absolute values may lead to misinterpretation of CBC data. Current Interpretive Data was last revised on 2018. Eosinophil pct 0.0 % [facility] Comment: Interpretive Data Percent cell count reference ranges are not reported, since discordance with absolute values may lead to misinterpretation of CBC data. Current Interpretive Data was last revised on 2018. Basophil pct 0.3 % [facility] Comment: Interpretive Data Percent cell count reference ranges are not reported, since discordance with absolute values may lead to misinterpretation of CBC data. Current Interpretive Data was last revised on 2018. Blood 02/04/2025 12:3 0 PM CDT 02/04/2025 12:47 PM CDT us Satya Arteaga MD LAB BLOOD ORDERABLES Final Re sult [facility] Department [place] [address] * (ABNORMAL) CBC with auto differential (02/04/2025 12:30 PM CDT) WBC 18.9(H) 3.8 - 9.9 K/cumm Hgb 13.9 11.9 - 15.5 g/dL [facility] Hct 40.7 35.6 - 45.5 % [facility] Plt 380 150 - 400 K/cumm [facility] MPV 10.5 9.1 - 12.3 fL [facility] RBC 4.58 3.90 - 5.20 M/cumm [facility] MCV 88.9 81.3 - 96.4 fL [facility] MCH 30.3 27.1 - 33.3 pg [facility] MCHC 34.2 32.3 - 35.7 g/dL [facility] RDW CV 12.8 11.1 - 14.9 % [facility] RDW SD 41.6 35.7 - 48.1 fL [facility] NRBC abs 0.00 0.00 - 0.01 K/cumm [facility] Blood Venous blood specimen / Unknown 02/04/2025 12:30 PM CDT 02/04/2025 12:47 PM CDT us Satya Arteaga MD LAB BLOOD ORDERABLES Final Re sult [facility] Department [place] [address] * (ABNORMAL) Comprehensive metabolic panel (02/04/2025 12:30 PM CDT) Sodium 138 135 - 145 mmol/L Potassium, pl 4.0 3.3 - 4.9 mmol/L [facility] Chloride 103 97 - 110 mmol/L [facility] CO2 18(L) 22 - 32 mmol/L [facility] Anion gap 17(H) 2 - 15 mmol/L [facility] BUN 13 6 - 25 mg/dL [facility] Creatinine 0.78 0.60 - 1.10 mg/dL [facility] Glucose 213(H) 70 - 199 mg/dL [facility] Comment: Interpretive Data Fasting glucose >/= [...] classification and Diagnosis of Diabetes Diabetes Care 202; 46: S19-S40. Current interpretive data was last revised 2022. Calcium 9.2 8.5 - 10.3 mg/dL [facility] Bilirubin, total 0.3 0.1 - 1.2 mg/dL [facility] Protein, pl 7.8 6.5 - 8.5 g/dL [facility] Albumin 4.8 3.5 - 5.0 g/dL [facility] Alk phos 75 40 - 130 Units/L [facility] ALT 25 7 - 45 Units/L [facility] AST 30 10 - 45 Units/L [facility] Blood Venous blood specimen / Unknown 02/04/2025 12:30 PM CDT 02/04/2025 12:46 PM CDT us Satya Arteaga MD LAB BLOOD ORDERABLES Final Re sult Performing Organization Address City/[facility]/ZIP Co de Phone Number [facility] Department [place] [address] * POCT glucose (02/04/2025 12:09 PM CDT) Glucose, POC 188 70 - 199 mg/dL Blood 02/04/2025 12:0 9 PM CDT 02/04/2025 12:09 PM CDT us Satya Arteaga MD LAB POCT ORDERABLES - DEVICE Final Result Performing Organization Address [facility] Co de Phone Number SHEEBA [facility] Department [place] [address] from Last 3 Months Insurance [employer] [facility] EM[employer]ES [id number] EMPLOYEES EMPLOYEES [place] [id number] Advance Directives For more information, please contact: [phone] * Full Code (Latest Code Status on File) Date Activated Date Inactivated Comments 05/15/2018 12:50 AM 05/16/2018 4:26 PM * Full Code Date Activated Date Inactivated Comments 05/14/2018 8:26 PM 05/15/2018 12:50 AM Care Teams Oil Rig Driller Relationship Specialty Start Date End Date Fabiano Dean MD PCP - General Family Medicine 01/27/22
--- OUTSIDE RECORDS SUMMARY | 2025-02-23 13:12 | XMS_ITS | Clinical Summary ---
Author Organization [facility] Address [facility] [place] [address] Care Team Providers Care Flag Signaler Name Role Phone Fabiano Dean MD Primary Care Provider [phone] Allergies No known active allergies Medications HYDROcodone-ac etaminophen 5-325 MG tabletIndicati ons:Acute Pain < 3 Day Supply Take 1 tablet by mouth every 6 (six) hours as needed for Pain (severe pain). Indications: Acute Pain < 3 Day Supply Do not exceed 4g of acetaminophen in a day. 8 tablet 2 Active Social History Tobacco Use Types Packs/Day Years Used Date Smoking Tobacco: Never Smokeless Tobacco: Never Alcohol Use Standard Drinks/Week Comments Yes 0 (1 standard drink = 0.6 oz pur e alcohol) socially Comments No Sex and Gender Information Value Date Recorded Sex Assigned at Not on file Legal Sex Female 6:38 PM CDT Gender Identity Not on file Sexual Orientation Not on file Last Filed Vital Signs Vital Sign Reading Time Taken Comments Blood Pressure 127/99 01/25/2022 3:07 PM BOTTLE BLOWER Pulse 110 01/25/2022 3:07 PM BOTTLE BLOWER Temperature 35.9 C (96.7 F) 01/25/2022 3:07 PM BOTTLE BLOWER Respiratory Rate 20 01/25/2022 3:07 PM BOTTLE BLOWER Oxygen Saturation 100% 01/25/2022 3:07 PM BOTTLE BLOWER Inhaled Oxygen Concentration - - Weight 99.8 kg (220 lb) 01/25/2022 3:07 PM BOTTLE BLOWER Height 154.9 cm (5' 1 ) 01/25/2022 3:07 PM BOTTLE BLOWER Body Mass Index 41.57 01/25/2022 3:07 PM BOTTLE BLOWER Plan of Treatment Health Maintenance Due Date Last Done Comments Cervical Cancer Screening Pa p Smear (Age 30 to 64) Every 3 Years 1985 Annual Physical 02/09/1988 Hepatitis C 2003 DTaP, Tdap and Td Vaccines ( 1 - Tdap) 02/09/2004 Hepatitis B Vaccines (1 of 3 - 19+ 3-dose series) 02/09/2004 Cervical Cancer Screening Pa p with HPV Testing (Age 30 to 64) Every 5 Years 2015 Cervical Cancer Screening wi th HPV 2015 COVID-19 Vaccine (2 - 2023-2 5 season) 2024 11/20/2021 Influenza Adult (#1) 2024 09/04/2021, 09/17/2020 Mammogram Screening 2025 HPV Vaccines Aged Out No longer eligi ble based on patient's age to complete this topic Meningococcal B Vaccine Aged Out No l onger eligible based on patient's age to complete this topic Meningococcal Vaccine Aged Out No ryan adal eligible based on patient's age to complete this topic Pneumococcal Vaccine: Pediatrics (0 to 5 Years) and At-Risk Patients (6 to 64 Years) Aged Out No longer eligible b ased on patient's age to complete this topic RSV Immunizations Under 20 Months Aged Out No longer eligible b ased on patient's age to complete this topic Insurance [facility] Care Teams Flag Signaler Relationship Specialty Start Date End Date Fabiano Dean MD [address] [place] [address] PCP - General FAMILY PRACTICE 01/25/22
== END 2025-02-23 13:07 | disposition home or self-care (01) ==
LOC: ANHIMG 13:09
PROVIDERS: PCP Family Medicine; Visit Provider Obstetrics & Gynecology
DX: N64.89 Other specified disorders of breast (principal)
CPT/HCPCS: 76642; 77061; 77065; G0279